=== PATIENT | male | born 2000 | race African-American/Black ===

== ENCOUNTER 2023-08-27 21:13 | Inpatient (IN) | payer MEDICAID ==
[2023-08-27] MEDS ORDERED: LORazepam 2 MG/ML VIAL ONE (21:47)
[2023-08-27] MEDS ORDERED: HALOPERIDOL LACTATE 5 MG/ML VIAL ONE (21:47)
[2023-08-27] MEDS ORDERED: DiphenhydrAMINE HCL 50 MG/ML VIAL ONE (21:47)
[2023-08-27 23:06] LABS: GLUCOMETER DEV NAME(LOC) POC.BV; POC SARS-COV2 AG, FIA NEGATIVE (NEGATIVE)
[2023-08-28] MEDS: LORazepam 2 MG/ML VIAL IM ONE (00:16)
[2023-08-28] MEDS: DiphenhydrAMINE HCL 50 MG/ML VIAL IM ONE (00:17)
[2023-08-28] MEDS: HALOPERIDOL LACTATE 5 MG/ML VIAL IM ONE (00:17)
[2023-08-28 02:11] VITALS: BP 126/78; PULSE 106; RESP 18; TEMP 98.5; O2SAT 97
[2023-08-28] MEDS ORDERED: MAG HYDROX/ALUMINUM HYD/SIMETH ES 30 ML SUSPENSION UDCUP PO PRN (05:30)
[2023-08-28] MEDS ORDERED: OMEPRAZOLE 20 MG CAPSULE PO PRN (05:30)
[2023-08-28] MEDS ORDERED: ALBUTEROL SULFATE HFA 90 MCG/PUFF 8 GM INHALER IH PRN (05:30)
[2023-08-28] MEDS ORDERED: ONDANSETRON HCL 4 MG TABLET PO PRN (05:30)
[2023-08-28] MEDS ORDERED: BACITRACIN 28 GM OINTMENT TP PRN (05:30)
[2023-08-28] MEDS ORDERED: PETROLATUM,WHITE 28 GM JELLY TP PRN (05:30)
[2023-08-28] MEDS ORDERED: ACETAMINOPHEN 325 MG TABLET PO PRN (05:30)
[2023-08-28] MEDS ORDERED: CloNIDine HCL 0.1 MG TABLET PO PRN (05:30)
[2023-08-28] MEDS ORDERED: BENZOCAINE/MENTHOL LOZENGE PO PRN (05:30)
[2023-08-28] MEDS ORDERED: LOPERAMIDE HCL 2 MG CAPSULE PO PRN (05:30)
[2023-08-28] MEDS ORDERED: MAGNESIUM HYDROXIDE SUSPENSION 30 ML UDCUP PO PRN (05:30)
[2023-08-28] MEDS ORDERED: DOCUSATE SODIUM 100 MG CAPSULE PO PRN (05:30)
[2023-08-28] MEDS: LORazepam 2 MG TABLET PO PRN (05:47)
[2023-08-28] MEDS: HALOPERIDOL 5 MG TABLET PO PRN (05:47)
[2023-08-28 08:53] LABS: BASOPHILS % (AUTO) 0.3 % (0.0-2.0); EOSINOPHILS % (AUTO) 4.2 % (1.0-6.0); HEMATOCRIT 40.6 % (41-53); HEMOGLOBIN 13.1 g/dL (13.5-17.5); LYMPHOCYTES # (AUTO) 2.6 K/uL (1.0-4.8); LYMPHOCYTES % (AUTO) 21.4 % (22.0-44.0); MEAN CORPUSCULAR HEMOGLOBIN 28.6 pg (26.0-34.0); MEAN CORPUSCULAR HGB CONC 32.2 G/dL (31.0-37.0); MEAN CORPUSCULAR VOLUME 89 fL (80-100); MONOCYTES # (AUTO) 0.8 K/uL (0.1-1.0); MONOCYTES % (AUTO) 6.9 % (2.0-9.0); NEUTROPHILS % (AUTO) 67.2 % (40.0-70.0); PLATELET COUNT (AUTO) 296 K/uL (150-450); RED BLOOD CELL COUNT(AUTO) 4.58 MIL/uL (4.50-5.90); RED CELL DISTRIBUTION WIDTH 13.8 % (11.5-14.5); WHITE BLOOD COUNT (AUTO) 11.9 K/uL (4.5-11.0)
[2023-08-28 09:10] LABS: ALANINE AMINOTRANSFERASE 28 U/L (12-78); ALKALINE PHOSPHATASE 56 U/L (46-116); ANION GAP 10 mmol/L (8-16); ASPARTATE AMINOTRANSFERASE 31 U/L (15-37); BILIRUBIN,TOTAL 0.4 mg/dL (0.1-1.0); CARBON DIOXIDE 26 mmol/L (22-29); CHLORIDE 100 mmol/L (98-107); CHOL/HDL RATIO 2.5 (4.2-7.3); CHOLESTEROL 109 mg/dL (131-200); GLOMERULAR FILTR. RATE CALC > 60 mL/min (>60); GLUCOSE,RANDOM 98 mg/dL (70-110); HDL CHOLESTEROL 43 mg/dL (40-60); LDL CHOL (CALC.) 52 mg/dL (0-130); POTASSIUM 4.1 mmol/L (3.5-5.1); SODIUM SERUM 136 mmol/L (136-145); THYROID STIMULATING HORMONE 1.79 uIU/mL (0.36-3.74); TOTAL PROTEIN, SERUM 7.5 g/dL (6.4-8.2); TRIGLYCERIDES 69 mg/dL (15-150); UREA NITROGEN, BLOOD 10 mg/dL (7-18)
[2023-08-28 09:12] VITALS: BP 122/65; PULSE 86; RESP 18; TEMP 97.9; O2SAT 100
[2023-08-28] MEDS: TERBINAFINE HCL 1% 30 GM CREAM TP SCH (17:22)
[2023-08-28] MEDS: BACITRACIN 28 GM OINTMENT TP SCH (17:28)
[2023-08-28 21:36] VITALS: RESP 18
[2023-08-29] MEDS: ZOLPIDEM TARTRATE 10 MG TABLET PO PRN (00:31)
[2023-08-29 08:52] VITALS: RESP 18
[2023-08-29] MEDS: MAGNESIUM SULFATE 454 GM BAG TP SCH (09:18)
[2023-08-29] MEDS: SULFAMETHOX/TRIMETH DS 800-160 MG/TABLET PO SCH (09:33)
[2023-08-30 08:22] VITALS: BP 123/68; PULSE 88; RESP 18; TEMP 98.3; O2SAT 100
[2023-08-30] MEDS: RisperiDONE 3 MG TABLET PO SCH (08:23)
[2023-08-30] MEDS: MULTIVITAMINS WITH MINERALS, THERAPEUTIC TABLET PO SCH (08:23)
[2023-08-30] MEDS ORDERED: HALOPERIDOL LACTATE 5 MG/ML VIAL ONE (10:58)
[2023-08-30] MEDS ORDERED: DiphenhydrAMINE HCL 50 MG/ML VIAL ONE (10:59)
[2023-08-30] MEDS: HALOPERIDOL LACTATE 5 MG/ML VIAL IM ONE (11:16)
[2023-08-30] MEDS: DiphenhydrAMINE HCL 50 MG/ML VIAL IM ONE (11:16)
[2023-08-30] MEDS: LORazepam 2 MG/ML VIAL IM ONE (11:16)
[2023-08-30 11:45] VITALS: BP 100/62; PULSE 68; RESP 16; TEMP 98.8; O2SAT 100
[2023-08-30 20:12] VITALS: BP 104/60; PULSE 88; RESP 18; TEMP 104; O2SAT 100
[2023-08-31 09:49] VITALS: BP 128/84; PULSE 96; RESP 19; O2SAT 99
[2023-08-31] MEDS: LORazepam 2 MG/ML VIAL IM ONE (11:56)
[2023-08-31] MEDS: DiphenhydrAMINE HCL 50 MG/ML VIAL IM ONE (11:56)
[2023-08-31] MEDS: HALOPERIDOL LACTATE 5 MG/ML VIAL IM ONE (11:56)
[2023-08-31 12:38] VITALS: BP 110/58; PULSE 98; RESP 17; TEMP 98.8; O2SAT 99
[2023-08-31 20:25] VITALS: BP 140/93; PULSE 125; RESP 18; TEMP 98.6; O2SAT 97
[2023-09-01 08:24] VITALS: BP 116/72; PULSE 100; RESP 17; TEMP 98.1; O2SAT 98
[2023-09-01 22:12] VITALS: RESP 17; TEMP 98.5
[2023-09-02 08:00] VITALS: BP 133/69; PULSE 115; RESP 18; TEMP 97.7
[2023-09-02 20:38] VITALS: RESP 18
[2023-09-03 08:23] VITALS: BP 114/65; PULSE 93; RESP 17; TEMP 97.6; O2SAT 97
[2023-09-03 21:20] VITALS: BP 118/63; PULSE 76; RESP 18; TEMP 97.7; O2SAT 98
[2023-09-04 08:33] VITALS: BP 119/60; PULSE 93; RESP 17; TEMP 97.6; O2SAT 95
[2023-09-04 20:33] VITALS: BP 103/65; PULSE 80; TEMP 97.9; O2SAT 99
[2023-09-05 09:29] VITALS: BP 128/64; PULSE 97; RESP 18; TEMP 97.1; O2SAT 99
[2023-09-05 20:30] VITALS: BP 114/86; PULSE 120; RESP 16; TEMP 98.4; O2SAT 99
[2023-09-06 08:06] VITALS: BP 120/86; PULSE 98; RESP 17; TEMP 98.2; O2SAT 98
[2023-09-06 21:16] VITALS: RESP 18
[2023-09-07 20:41] VITALS: RESP 18
[2023-09-08 08:40] VITALS: BP 100/62; PULSE 66; RESP 17; TEMP 97.6; O2SAT 100
[2023-09-08 20:49] VITALS: BP 104/52; PULSE 76; RESP 16; TEMP 98.2; O2SAT 97
[2023-09-09 08:11] VITALS: BP 124/73; PULSE 78; RESP 17; TEMP 97.7; O2SAT 100
[2023-09-09 20:30] VITALS: BP 121/80; PULSE 94; TEMP 97.7; O2SAT 99
[2023-09-10 08:26] VITALS: BP 119/71; PULSE 83; RESP 17; TEMP 98; O2SAT 97
[2023-09-11 00:38] VITALS: BP 123/68; PULSE 98; RESP 18; TEMP 97.6; O2SAT 99
[2023-09-11 08:46] VITALS: BP 127/60; PULSE 87; RESP 17; TEMP 98; O2SAT 99
[2023-09-11 20:14] VITALS: BP 120/83; PULSE 97; RESP 17; TEMP 98.4; O2SAT 100
[2023-09-12 08:28] VITALS: BP 104/75; PULSE 86; RESP 17; TEMP 97.4; O2SAT 99
[2023-09-12 20:51] VITALS: BP 126/61; PULSE 86; RESP 18; TEMP 98.2; O2SAT 100
[2023-09-13 08:28] VITALS: BP 140/80; PULSE 80; RESP 18; TEMP 97.9; O2SAT 100
[2023-09-13 23:53] VITALS: BP 120/76; PULSE 98; RESP 18; TEMP 97.9; O2SAT 98
[2023-09-14 08:41] VITALS: BP 124/77; PULSE 80; RESP 16; TEMP 98; O2SAT 98
[2023-09-14 20:19] VITALS: BP 116/64; PULSE 86; TEMP 98; O2SAT 98
[2023-09-15 08:34] VITALS: BP 127/75; PULSE 94; RESP 18; TEMP 98.2; O2SAT 100
[2023-09-15 20:58] VITALS: BP 133/78; PULSE 78; TEMP 98.2; O2SAT 98
[2023-09-16 08:05] VITALS: BP 122/86; PULSE 84; RESP 17; TEMP 98.4; O2SAT 100
[2023-09-16 20:28] VITALS: BP 127/76; PULSE 69; RESP 16; TEMP 97.6; O2SAT 100
[2023-09-17 08:30] VITALS: BP 119/66; PULSE 90; RESP 17; TEMP 98; O2SAT 100
[2023-09-17 09:10] LABS: APPEARANCE,URINE CLEAR (CLEAR); BILIRUBIN,URINE NEGATIVE (NEGATIVE); COLOR,URINE COLORLESS (YELLOW); GLUCOSE, URINE (UA) NEGATIVE (NEGATIVE); KETONES,URINE NEGATIVE (NEGATIVE); LEUKOCYTE ESTERASE ,URINE NEGATIVE (NEGATIVE); NITRATE,URINE NEGATIVE (NEGATIVE); OCCULT BLOOD,URINE NEGATIVE (NEGATIVE); PH,URINE 6.5 (5.0-8.0); PROTEIN,URINE NEGATIVE (NEGATIVE); SPECIFIC GRAVITIY, URINE 1.002 (1.003-1.030); UROBILINOGEN,URINE <=1.0 mg/dL (<=1.0)
[2023-09-17 21:06] VITALS: BP 115/64; PULSE 94; RESP 16; TEMP 98.3; O2SAT 96
[2023-09-18 09:53] VITALS: BP 135/62; PULSE 98; RESP 20; TEMP 96.8; O2SAT 98
[2023-09-18 20:45] VITALS: BP 126/65; PULSE 72; RESP 16; TEMP 97.6; O2SAT 97
[2023-09-19 08:24] VITALS: BP 137/73; PULSE 84; RESP 18; TEMP 97.9; O2SAT 100
[2023-09-19 08:29] LABS: BASOPHILS % (AUTO) 0.7 % (0.0-2.0); EOSINOPHILS % (AUTO) 9.4 % (1.0-6.0); HEMATOCRIT 37.2 % (41-53); HEMOGLOBIN 12.4 g/dL (13.5-17.5); LYMPHOCYTES # (AUTO) 2.8 K/uL (1.0-4.8); LYMPHOCYTES % (AUTO) 30.9 % (22.0-44.0); MEAN CORPUSCULAR HEMOGLOBIN 29.7 pg (26.0-34.0); MEAN CORPUSCULAR HGB CONC 33.4 G/dL (31.0-37.0); MEAN CORPUSCULAR VOLUME 89 fL (80-100); MONOCYTES # (AUTO) 0.9 K/uL (0.1-1.0); MONOCYTES % (AUTO) 10.1 % (2.0-9.0); NEUTROPHILS # (AUTO) 4.4 K/uL (1.8-7.7); NEUTROPHILS % (AUTO) 48.9 % (40.0-70.0); PLATELET COUNT (AUTO) 271 K/uL (150-450); RED BLOOD CELL COUNT(AUTO) 4.19 MIL/uL (4.50-5.90); RED CELL DISTRIBUTION WIDTH 14.2 % (11.5-14.5); WHITE BLOOD COUNT (AUTO) 8.9 K/uL (4.5-11.0)
[2023-09-19] MEDS: CloZAPine 25 MG TABLET PO SCH (11:30)
[2023-09-19 20:18] VITALS: BP 125/75; PULSE 76; RESP 18; TEMP 97.6; O2SAT 99
[2023-09-20] MEDS: CloZAPine 25 MG TABLET PO SCH ×2 (08:23→20:21)
[2023-09-20 11:01] VITALS: BP 126/72; PULSE 93; RESP 17; TEMP 97.9; O2SAT 99
[2023-09-20 20:50] VITALS: BP 132/72; PULSE 86; RESP 18; TEMP 98; O2SAT 98
[2023-09-21] MEDS: CloZAPine 25 MG TABLET PO SCH ×2 (08:09→20:06)
[2023-09-21 09:13] VITALS: BP 136/84; PULSE 96; RESP 17; TEMP 97.7; O2SAT 100
[2023-09-21 21:02] VITALS: BP 146/94; PULSE 90; TEMP 98.4; O2SAT 99
[2023-09-22] MEDS: CloZAPine 25 MG TABLET PO SCH (08:14)
[2023-09-22 08:44] VITALS: BP 137/66; PULSE 110; RESP 18; TEMP 97.7; O2SAT 100
[2023-09-22 20:13] VITALS: BP 120/81; PULSE 87; TEMP 97.4; O2SAT 98
[2023-09-23 08:30] VITALS: BP 123/76; PULSE 122; RESP 18; TEMP 97.6; O2SAT 100
[2023-09-23 11:20] VITALS: BP 131/67; PULSE 123; RESP 18; O2SAT 100
[2023-09-23 20:15] VITALS: BP 111/83; PULSE 120; TEMP 97.7; O2SAT 98
[2023-09-23] MEDS: ATENOLOL 25 MG TABLET PO SCH (20:23)
[2023-09-24 08:17] VITALS: BP 106/63; PULSE 95; RESP 17; TEMP 98; O2SAT 99
[2023-09-24] MEDS: CloZAPine 25 MG TABLET PO SCH (09:18)
[2023-09-24 20:17] VITALS: BP 124/74; PULSE 66; TEMP 97.9; O2SAT 98
[2023-09-24] MEDS: CloZAPine 100 MG TABLET PO SCH (20:47)
[2023-09-25] MEDS: CloZAPine 25 MG TABLET PO SCH (08:20)
[2023-09-25 09:02] VITALS: BP 130/70; PULSE 98; RESP 17; TEMP 98.2; O2SAT 100
[2023-09-25] MEDS: CloZAPine 100 MG TABLET PO SCH (20:39)
[2023-09-25 22:06] VITALS: BP 120/60; PULSE 91; RESP 18; TEMP 98.1; O2SAT 99
[2023-09-26] MEDS: CloZAPine 25 MG TABLET PO SCH (08:14)
[2023-09-26 08:22] VITALS: BP 123/69; PULSE 103; RESP 18; TEMP 97.8; O2SAT 100
[2023-09-26 08:28] LABS: BASOPHILS % (AUTO) 0.4 % (0.0-2.0); EOSINOPHILS % (AUTO) 10.6 % (1.0-6.0); HEMOGLOBIN 13.6 g/dL (13.5-17.5); LYMPHOCYTES # (AUTO) 2.5 K/uL (1.0-4.8); LYMPHOCYTES % (AUTO) 31.6 % (22.0-44.0); MEAN CORPUSCULAR HEMOGLOBIN 29.7 pg (26.0-34.0); MEAN CORPUSCULAR HGB CONC 33.2 G/dL (31.0-37.0); MEAN CORPUSCULAR VOLUME 89 fL (80-100); MONOCYTES # (AUTO) 0.7 K/uL (0.1-1.0); MONOCYTES % (AUTO) 8.8 % (2.0-9.0); NEUTROPHILS # (AUTO) 3.9 K/uL (1.8-7.7); NEUTROPHILS % (AUTO) 48.6 % (40.0-70.0); PLATELET COUNT (AUTO) 255 K/uL (150-450); RED BLOOD CELL COUNT(AUTO) 4.59 MIL/uL (4.50-5.90); RED CELL DISTRIBUTION WIDTH 14.8 % (11.5-14.5)
[2023-09-26 20:14] VITALS: BP 129/80; PULSE 81; RESP 18; TEMP 97.7
[2023-09-26] MEDS: CloZAPine 100 MG TABLET PO SCH (21:12)
[2023-09-27 08:03] VITALS: BP 129/64; PULSE 75; RESP 16; TEMP 98; O2SAT 100
[2023-09-27] MEDS: CloZAPine 100 MG TABLET PO SCH (08:04)
[2023-09-27 21:41] VITALS: BP 142/84; PULSE 84; RESP 16; TEMP 98.6; O2SAT 100
[2023-09-28 08:52] VITALS: BP 109/70; PULSE 100; RESP 18; TEMP 98.1; O2SAT 100
[2023-09-28 21:01] VITALS: BP 126/63; PULSE 103; TEMP 98.7; O2SAT 99
[2023-09-29] MEDS: INFLUENZA VIRUS VACCINE QVS 2023-24 (6MO+)/PF 60 MCG/0.5 ML SYRINGE IM. ONE (06:00)
[2023-09-29] MEDS: CloZAPine 25 MG TABLET PO SCH (08:11)
[2023-09-29 08:30] VITALS: BP 112/66; PULSE 93; RESP 17; TEMP 97.9; O2SAT 99
[2023-09-29] MEDS: CloZAPine 100 MG TABLET PO SCH (20:11)
[2023-09-29 20:14] VITALS: BP 139/80; PULSE 81; RESP 16; TEMP 98.4; O2SAT 98
[2023-09-30] MEDS: CloZAPine 25 MG TABLET PO SCH (08:22)
[2023-09-30 09:48] VITALS: BP 142/89; PULSE 100; RESP 18; TEMP 98.6; O2SAT 100
[2023-09-30] MEDS: CloZAPine 100 MG TABLET PO SCH (20:13)
[2023-09-30 20:27] VITALS: BP 111/78; PULSE 146; RESP 16; TEMP 98.2; O2SAT 97
[2023-10-01] MEDS: CloZAPine 100 MG TABLET PO SCH ×2 (09:07→20:54)
[2023-10-01 15:59] VITALS: BP 135/82; PULSE 88; RESP 18; TEMP 98.4; O2SAT 98
[2023-10-01 20:29] VITALS: BP 135/80; PULSE 88; RESP 18; TEMP 98.3; O2SAT 100
[2023-10-02 08:10] VITALS: BP 132/77; PULSE 100; RESP 18; TEMP 97.8; O2SAT 98
[2023-10-02 09:56] VITALS: BP 134/86; PULSE 96; RESP 18; TEMP 98.4; O2SAT 99
[2023-10-02 21:48] VITALS: BP 127/80; PULSE 99; RESP 18; TEMP 98.6; O2SAT 100
[2023-10-03 08:00] VITALS: BP 118/70; PULSE 104; RESP 18; TEMP 98.2; O2SAT 100
[2023-10-03 09:51] LABS: BASOPHILS % (AUTO) 0.9 % (0.0-2.0); EOSINOPHILS % (AUTO) 9.7 % (1.0-6.0); HEMATOCRIT 38.7 % (41-53); HEMOGLOBIN 12.8 g/dL (13.5-17.5); LYMPHOCYTES # (AUTO) 2.4 K/uL (1.0-4.8); LYMPHOCYTES % (AUTO) 29.4 % (22.0-44.0); MEAN CORPUSCULAR HEMOGLOBIN 29.4 pg (26.0-34.0); MEAN CORPUSCULAR HGB CONC 33.2 G/dL (31.0-37.0); MEAN CORPUSCULAR VOLUME 89 fL (80-100); MONOCYTES # (AUTO) 0.7 K/uL (0.1-1.0); NEUTROPHILS # (AUTO) 4.2 K/uL (1.8-7.7); PLATELET COUNT (AUTO) 252 K/uL (150-450); RED BLOOD CELL COUNT(AUTO) 4.37 MIL/uL (4.50-5.90); RED CELL DISTRIBUTION WIDTH 14.5 % (11.5-14.5); WHITE BLOOD COUNT (AUTO) 8.2 K/uL (4.5-11.0)
[2023-10-03 20:12] VITALS: BP 129/86; PULSE 88; RESP 18; TEMP 97.9
[2023-10-04 08:06] VITALS: BP 116/82; PULSE 85; RESP 16; TEMP 98; O2SAT 98
[2023-10-04 20:19] VITALS: BP 137/91; PULSE 92; RESP 18; TEMP 97.6; O2SAT 99
[2023-10-05 08:25] VITALS: BP 131/90; PULSE 100; RESP 18; TEMP 98; O2SAT 99
[2023-10-05 20:33] VITALS: BP 126/82; PULSE 92; RESP 18; TEMP 98; O2SAT 99
[2023-10-06 08:41] VITALS: BP 107/65; PULSE 106; RESP 17; TEMP 97.8; O2SAT 96
[2023-10-06 20:13] VITALS: BP 125/72; PULSE 98; RESP 18; TEMP 98; O2SAT 97
[2023-10-07 08:20] VITALS: BP 132/89; PULSE 100; RESP 17; TEMP 97.7; O2SAT 99
[2023-10-07 20:55] VITALS: BP 122/77; PULSE 76; TEMP 98.2; O2SAT 98
[2023-10-08 08:29] VITALS: BP 127/65; PULSE 94; RESP 18; TEMP 98.7; O2SAT 98
[2023-10-08 20:37] VITALS: BP 138/74; PULSE 92; TEMP 97.9; O2SAT 97
[2023-10-09 08:11] VITALS: BP 109/60; PULSE 100; RESP 17; TEMP 97.8; O2SAT 100
[2023-10-09 20:18] VITALS: BP 149/83; PULSE 104; RESP 18; TEMP 96.7; O2SAT 99
[2023-10-10 08:17] VITALS: BP 127/72; PULSE 110; RESP 18; TEMP 97.9; O2SAT 97
[2023-10-10 08:22] LABS: EOSINOPHILS % (AUTO) 11.3 % (1.0-6.0); HEMATOCRIT 40.6 % (41-53); HEMOGLOBIN 13.5 g/dL (13.5-17.5); LYMPHOCYTES # (AUTO) 3.2 K/uL (1.0-4.8); LYMPHOCYTES % (AUTO) 35.4 % (22.0-44.0); MEAN CORPUSCULAR HEMOGLOBIN 29.7 pg (26.0-34.0); MEAN CORPUSCULAR HGB CONC 33.3 G/dL (31.0-37.0); MEAN CORPUSCULAR VOLUME 89 fL (80-100); MONOCYTES # (AUTO) 0.8 K/uL (0.1-1.0); MONOCYTES % (AUTO) 8.4 % (2.0-9.0); NEUTROPHILS % (AUTO) 43.9 % (40.0-70.0); PLATELET COUNT (AUTO) 297 K/uL (150-450); RED BLOOD CELL COUNT(AUTO) 4.55 MIL/uL (4.50-5.90); RED CELL DISTRIBUTION WIDTH 14.6 % (11.5-14.5); WHITE BLOOD COUNT (AUTO) 9.1 K/uL (4.5-11.0)
[2023-10-11 04:00] VITALS: BP 113/78; PULSE 77; RESP 20; TEMP 97
[2023-10-11 09:23] VITALS: BP 130/60; PULSE 100; RESP 17; TEMP 97.9; O2SAT 100
[2023-10-11] MEDS: IBUPROFEN 600 MG TABLET PO PRN (18:58)
[2023-10-11 20:08] VITALS: RESP 18
[2023-10-12 08:24] VITALS: BP 140/60; PULSE 90; RESP 17; TEMP 98.5; O2SAT 100
[2023-10-12 20:41] VITALS: BP 128/69; PULSE 96; RESP 18; TEMP 98.2; O2SAT 98
[2023-10-13 08:35] VITALS: BP 129/85; PULSE 113; RESP 18; TEMP 97.9; O2SAT 99
[2023-10-13 08:45] VITALS: PULSE 100
[2023-10-13 21:09] VITALS: BP 140/87; PULSE 72; RESP 16; TEMP 98.4; O2SAT 98
[2023-10-14 08:29] VITALS: BP 132/70; PULSE 100; RESP 18; TEMP 97.7; O2SAT 98
[2023-10-14 21:37] VITALS: BP 126/72; PULSE 97; RESP 16; TEMP 97.7
[2023-10-15 09:23] VITALS: BP 123/71; PULSE 117; RESP 18; TEMP 98.6; O2SAT 96
[2023-10-15 20:13] VITALS: BP 132/66; PULSE 111; TEMP 98.4; O2SAT 98
[2023-10-16 08:20] VITALS: BP 112/71; PULSE 103; RESP 18; TEMP 98.7; O2SAT 98
[2023-10-16 20:16] VITALS: BP 114/85; PULSE 105; TEMP 98.2; O2SAT 96
[2023-10-17 08:12] LABS: BASOPHILS % (AUTO) 0.6 % (0.0-2.0); EOSINOPHILS % (AUTO) 9.8 % (1.0-6.0); HEMATOCRIT 40.5 % (41-53); HEMOGLOBIN 13.5 g/dL (13.5-17.5); LYMPHOCYTES # (AUTO) 2.8 K/uL (1.0-4.8); LYMPHOCYTES % (AUTO) 24.9 % (22.0-44.0); MEAN CORPUSCULAR HEMOGLOBIN 29.4 pg (26.0-34.0); MEAN CORPUSCULAR HGB CONC 33.3 G/dL (31.0-37.0); MEAN CORPUSCULAR VOLUME 88 fL (80-100); MONOCYTES # (AUTO) 0.8 K/uL (0.1-1.0); MONOCYTES % (AUTO) 7.5 % (2.0-9.0); NEUTROPHILS # (AUTO) 6.4 K/uL (1.8-7.7); NEUTROPHILS % (AUTO) 57.2 % (40.0-70.0); PLATELET COUNT (AUTO) 270 K/uL (150-450); RED BLOOD CELL COUNT(AUTO) 4.58 MIL/uL (4.50-5.90); RED CELL DISTRIBUTION WIDTH 14.6 % (11.5-14.5); WHITE BLOOD COUNT (AUTO) 11.3 K/uL (4.5-11.0)
[2023-10-17 08:15] VITALS: BP 125/62; PULSE 100; RESP 18; TEMP 97.3; O2SAT 96
[2023-10-17 20:16] VITALS: BP 177/83; PULSE 100; RESP 17; TEMP 98.6; O2SAT 99
[2023-10-18 08:11] VITALS: BP 141/84; PULSE 100; RESP 17; TEMP 98.5; O2SAT 99
[2023-10-18 20:27] VITALS: BP 125/81; PULSE 95; RESP 17; TEMP 98.2; O2SAT 97
[2023-10-19 08:49] VITALS: BP 137/72; PULSE 94; RESP 18; TEMP 97; O2SAT 97
[2023-10-19 20:22] VITALS: BP 126/77; PULSE 71; RESP 18; TEMP 98; O2SAT 96
[2023-10-20 08:47] VITALS: BP 140/86; PULSE 95; RESP 18; TEMP 97.8; O2SAT 98
[2023-10-20 20:23] VITALS: BP 113/75; PULSE 83; TEMP 98.4; O2SAT 97
[2023-10-21 08:26] VITALS: BP 124/73; PULSE 100; RESP 17; TEMP 97.6; O2SAT 98
[2023-10-21 20:19] VITALS: BP 124/68; PULSE 101; TEMP 97.5; O2SAT 98
[2023-10-22 08:36] VITALS: BP 133/80; PULSE 109; RESP 18; TEMP 97.7; O2SAT 99
[2023-10-22 20:16] VITALS: BP 126/73; PULSE 70; TEMP 98.2; O2SAT 100
[2023-10-23 08:32] VITALS: BP 101/62; PULSE 100; RESP 17; TEMP 97.2; O2SAT 99
[2023-10-23 20:21] VITALS: BP 129/72; PULSE 99; TEMP 98.4; O2SAT 96
[2023-10-24 08:08] LABS: BASOPHILS % (AUTO) 0.5 % (0.0-2.0); EOSINOPHILS % (AUTO) 12.3 % (1.0-6.0); HEMATOCRIT 41.9 % (41-53); HEMOGLOBIN 13.8 g/dL (13.5-17.5); LYMPHOCYTES % (AUTO) 34.4 % (22.0-44.0); MEAN CORPUSCULAR HEMOGLOBIN 29.5 pg (26.0-34.0); MEAN CORPUSCULAR VOLUME 89 fL (80-100); MONOCYTES # (AUTO) 0.8 K/uL (0.1-1.0); MONOCYTES % (AUTO) 8.9 % (2.0-9.0); NEUTROPHILS # (AUTO) 3.8 K/uL (1.8-7.7); NEUTROPHILS % (AUTO) 43.9 % (40.0-70.0); PLATELET COUNT (AUTO) 266 K/uL (150-450); RED BLOOD CELL COUNT(AUTO) 4.69 MIL/uL (4.50-5.90); RED CELL DISTRIBUTION WIDTH 14.5 % (11.5-14.5); WHITE BLOOD COUNT (AUTO) 8.7 K/uL (4.5-11.0)
[2023-10-24 08:24] VITALS: BP 141/79; PULSE 99; RESP 18; TEMP 97.5; O2SAT 100
[2023-10-24 20:07] VITALS: BP 136/87; PULSE 88; RESP 20; TEMP 97.7; O2SAT 98
[2023-10-25 08:59] VITALS: BP 112/69; PULSE 107; RESP 19; TEMP 97.8; O2SAT 98
[2023-10-25] MEDS ORDERED: CLOZ100T61 PO (09:18)
[2023-10-25] MEDS ORDERED: CLOZ200T24 PO (09:18)
[2023-10-25] MEDS ORDERED: ATEN-187 PO (09:20)
[2023-10-25] MEDS ORDERED: MULT-248 PO (09:21)
[2023-10-25 20:51] VITALS: BP 116/75; PULSE 74; RESP 16; TEMP 97.9; O2SAT 94
[2023-10-26 08:14] VITALS: BP 104/64; PULSE 84; RESP 16; TEMP 97.4; O2SAT 97
[2023-10-26 08:27] LABS: BASOPHILS % (AUTO) 1.1 % (0.0-2.0); EOSINOPHILS % (AUTO) 12.7 % (1.0-6.0); HEMATOCRIT 43.3 % (41-53); HEMOGLOBIN 14.5 g/dL (13.5-17.5); LYMPHOCYTES # (AUTO) 2.7 K/uL (1.0-4.8); LYMPHOCYTES % (AUTO) 32.2 % (22.0-44.0); MEAN CORPUSCULAR HEMOGLOBIN 29.7 pg (26.0-34.0); MEAN CORPUSCULAR HGB CONC 33.6 G/dL (31.0-37.0); MEAN CORPUSCULAR VOLUME 89 fL (80-100); MONOCYTES # (AUTO) 0.7 K/uL (0.1-1.0); MONOCYTES % (AUTO) 8.8 % (2.0-9.0); NEUTROPHILS # (AUTO) 3.8 K/uL (1.8-7.7); NEUTROPHILS % (AUTO) 45.2 % (40.0-70.0); PLATELET COUNT (AUTO) 277 K/uL (150-450); RED BLOOD CELL COUNT(AUTO) 4.89 MIL/uL (4.50-5.90); RED CELL DISTRIBUTION WIDTH 14.5 % (11.5-14.5); WHITE BLOOD COUNT (AUTO) 8.4 K/uL (4.5-11.0)
[2023-10-26 20:13] VITALS: BP 109/64; PULSE 91; RESP 16; TEMP 97.8; O2SAT 97
[2023-10-27 08:30] VITALS: BP 108/50; PULSE 92; RESP 18; TEMP 98; O2SAT 98
[2023-10-27] MEDS ORDERED: RISP3TAB77 PO (09:30)
== END 2023-10-27 14:39 | disposition home or self-care (01) | DRG 750 ==
LOC: B3A 22:14 → B2S 10-24 21:26
PROVIDERS: ADMIT Psychiatry & Neurology Psychiatry; ATTEND Psychiatry & Neurology Psychiatry
DX: F20.9 Schizophrenia, unspecified (principal); S91.301A Unspecified open wound, right foot, initial encounter; R45.851 Suicidal ideations; F32.A Depression, unspecified; Z20.822 Contact with and (suspected) exposure to COVID-19; F41.9 Anxiety disorder, unspecified; F94.0 Selective mutism; G47.00 Insomnia, unspecified; K21.9 Gastro-esophageal reflux disease without esophagitis; K59.00 Constipation, unspecified; S91.302A Unspecified open wound, left foot, initial encounter; X58.XXXA Exposure to other specified factors, initial encounter; Y93.9 Activity, unspecified; Y92.89 Other specified places as the place of occurrence of the external cause; Y99.8 Other external cause status
CPT/HCPCS: 80053; 80061; 81003; 83036; 84439; 84443; 85025; 86592; 87081; J1200; J1630; J2060

== ENCOUNTER 2023-11-13 10:25 | Inpatient (IN) | payer MEDICAID, OTHER ==
[~2023-11-13] VITALS: Ht 182.9 cm; Wt 86.2 kg
[~2023-11-13 10:25] MED LIST: ATEN-187 PO; MULT-248 PO; RISP3TAB77 PO
[2023-11-13 11:57] LABS: BASOPHILS % (AUTO) 0.9 % (0.0-2.0); EOSINOPHILS % (AUTO) 5.7 % (1.0-6.0); HEMATOCRIT 40.1 % (41-53); HEMOGLOBIN 13.5 g/dL (13.5-17.5); LYMPHOCYTES # (AUTO) 2.7 K/uL (1.0-4.8); LYMPHOCYTES % (AUTO) 29.3 % (22.0-44.0); MEAN CORPUSCULAR HEMOGLOBIN 29.7 pg (26.0-34.0); MEAN CORPUSCULAR HGB CONC 33.7 G/dL (31.0-37.0); MEAN CORPUSCULAR VOLUME 88 fL (80-100); MONOCYTES # (AUTO) 0.7 K/uL (0.1-1.0); MONOCYTES % (AUTO) 7.8 % (2.0-9.0); NEUTROPHILS # (AUTO) 5.2 K/uL (1.8-7.7); NEUTROPHILS % (AUTO) 56.3 % (40.0-70.0); PLATELET COUNT (AUTO) 209 K/uL (150-450); RED BLOOD CELL COUNT(AUTO) 4.55 MIL/uL (4.50-5.90); RED CELL DISTRIBUTION WIDTH 13.7 % (11.5-14.5); WHITE BLOOD COUNT (AUTO) 9.3 K/uL (4.5-11.0)
[2023-11-13 12:06] LABS: ANION GAP 11 mmol/L (8-16); CARBON DIOXIDE 23 mmol/L (22-29); CHLORIDE 105 mmol/L (98-107); CREATININE 0.83 mg/dL (0.60-1.30); GLOMERULAR FILTR. RATE CALC > 60 mL/min (>60); GLUCOSE,RANDOM 99 mg/dL (70-110); POTASSIUM 3.9 mmol/L (3.5-5.1); SODIUM SERUM 139 mmol/L (136-145); UREA NITROGEN, BLOOD 10 mg/dL (7-18)
[2023-11-13 12:10] LABS: ALCOHOL, BLOOD (SERUM) < 3 mg/dL (0-10)
[2023-11-13 12:12] LABS: ALANINE AMINOTRANSFERASE 30 U/L (12-78); ALBUMIN 3.9 g/dL (3.4-5.0); ALKALINE PHOSPHATASE 77 U/L (46-116); ASPARTATE AMINOTRANSFERASE 30 U/L (15-37); BILIRUBIN,TOTAL 0.5 mg/dL (0.1-1.0)
[2023-11-13 12:47] LABS: APPEARANCE,URINE CLEAR (CLEAR); BILIRUBIN,URINE NEGATIVE (NEGATIVE); COLOR,URINE LIGHT YELLOW (YELLOW); GLUCOSE, URINE (UA) NEGATIVE (NEGATIVE); KETONES,URINE NEGATIVE (NEGATIVE); LEUKOCYTE ESTERASE ,URINE NEGATIVE (NEGATIVE); NITRATE,URINE NEGATIVE (NEGATIVE); OCCULT BLOOD,URINE NEGATIVE (NEGATIVE); PH,URINE 7.5 (5.0-8.0); PH,URINE DRUG SCREEN 7.5 (5.0-8.0); PROTEIN,URINE NEGATIVE (NEGATIVE); SPECIFIC GRAVITIY, URINE 1.014 (1.003-1.030); UROBILINOGEN,URINE <=1.0 mg/dL (<=1.0)
[2023-11-13 12:52] LABS: AMPHET/METH SCREEN,URINE NEGATIVE (NEGATIVE); BARBITURATE SCREEN, URINE NEGATIVE (NEGATIVE); BENZODIAZEPINES SCREEN,URINE NEGATIVE (NEGATIVE); CANNABINOID SCREEN,URINE NEGATIVE (NEGATIVE); COCAINE SCREEN,URINE NEGATIVE (NEGATIVE); METHADONE SCREEN, URINE NEGATIVE (NEGATIVE); OPIATE SCREEN,URINE NEGATIVE (NEGATIVE); PHENCYCLIDINE SCREEN,URINE NEGATIVE (NEGATIVE)
[2023-11-13 12:54] LABS: ALCOHOL, URINE DRUG SCREEN NEGATIVE (NEGATIVE)
[2023-11-13 13:15] LABS: BACTERIA,URINE None Seen /HPF (None Seen); RBC,URINE None Seen /HPF (0-2); WBC,URINE 0-2 /HPF (0-5)
[2023-11-13] MEDS: HALOPERIDOL LACTATE 5 MG/ML VIAL IM ONE (13:22)
[2023-11-13] MEDS: LORazepam 2 MG/ML VIAL IM ONE (13:22)
[2023-11-13] MEDS: DiphenhydrAMINE HCL 50 MG/ML VIAL IM ONE (13:22)
[2023-11-13 17:49] LABS: COVID AG,FIA SOURCE NASAL SWAB
[2023-11-13] MEDS: LORazepam 2 MG TABLET PO ONE (17:54)
[2023-11-13 18:16] LABS: SARS-COV2 (COVID) ANTIGEN,FIA Negative (Negative)
[2023-11-13 20:59] VITALS: BP 133/75; PULSE 85; RESP 18; TEMP 97.5
[2023-11-13] MEDS ORDERED: PNEUMOCOCCAL VACCINE POLYVALENT 0.5 ML SYRINGE [PPSV23] IM. ONE (21:15)
[2023-11-14] MEDS: LORazepam 2 MG TABLET PO PRN (00:28)
[2023-11-14] MEDS: ZOLPIDEM TARTRATE 10 MG TABLET PO PRN (00:28)
[2023-11-14] MEDS ORDERED: DOCUSATE SODIUM 100 MG CAPSULE PO PRN (07:00)
[2023-11-14] MEDS ORDERED: LOPERAMIDE HCL 2 MG CAPSULE PO PRN (07:00)
[2023-11-14] MEDS ORDERED: NICOTINE 14 MG/24 HOUR PATCH TD PRN (07:00)
[2023-11-14] MEDS ORDERED: PETROLATUM,WHITE 28 GM JELLY TP PRN (07:00)
[2023-11-14] MEDS ORDERED: ALBUTEROL SULFATE HFA 90 MCG/PUFF 8 GM INHALER IH PRN (07:00)
[2023-11-14] MEDS ORDERED: GuaiFENesin/D-METHORPHAN [SUGAR-FREE] 200-20MG/10 ML SYRUP UDCUP PO PRN (07:00)
[2023-11-14] MEDS ORDERED: MAGNESIUM HYDROXIDE SUSPENSION 30 ML UDCUP PO PRN (07:00)
[2023-11-14] MEDS ORDERED: MAG HYDROX/ALUMINUM HYD/SIMETH ES 30 ML SUSPENSION UDCUP PO PRN (07:00)
[2023-11-14] MEDS ORDERED: ONDANSETRON HCL 4 MG TABLET PO PRN (07:00)
[2023-11-14] MEDS: HALOPERIDOL 5 MG TABLET PO PRN (07:32)
[2023-11-14 08:01] VITALS: BP 147/81; PULSE 98; RESP 18; TEMP 98.2; O2SAT 99
[2023-11-14] MEDS: MULTIVITAMINS, THERAPEUTIC TABLET PO SCH (08:01)
[2023-11-14] MEDS: ATENOLOL 25 MG TABLET PO SCH (08:01)
[2023-11-14 08:45] LABS: HEMOGLOBIN A1C 5.4 % (3.8-5.6)
[2023-11-14 09:06] LABS: CHOL/HDL RATIO 2.2 (4.2-7.3)
[2023-11-14] MEDS: RisperiDONE 3 MG TABLET PO SCH (10:24)
[2023-11-14 21:09] VITALS: BP 138/90; PULSE 90; RESP 18; TEMP 97.3; O2SAT 99
[2023-11-14 21:55] VITALS: BP 138/90; PULSE 90; RESP 18; TEMP 97.3
[2023-11-15 08:09] VITALS: BP 125/91; PULSE 100; RESP 16; TEMP 96; O2SAT 100
[2023-11-15 08:55] LABS: HEMOGLOBIN A1C 5.6 % (3.8-5.6)
[2023-11-15 08:58] LABS: CHOL/HDL RATIO 2.4 (4.2-7.3)
[2023-11-15 09:19] LABS: THYROID STIMULATING HORMONE 2.6 uIU/mL (0.36-3.74)
[2023-11-15 09:37] LABS: APPEARANCE,URINE CLEAR (CLEAR); BILIRUBIN,URINE NEGATIVE (NEGATIVE); COLOR,URINE COLORLESS (YELLOW); GLUCOSE, URINE (UA) NEGATIVE (NEGATIVE); KETONES,URINE NEGATIVE (NEGATIVE); LEUKOCYTE ESTERASE ,URINE NEGATIVE (NEGATIVE); NITRATE,URINE NEGATIVE (NEGATIVE); OCCULT BLOOD,URINE NEGATIVE (NEGATIVE); PH,URINE 6.5 (5.0-8.0); PH,URINE DRUG SCREEN 6.5 (5.0-8.0); PROTEIN,URINE NEGATIVE (NEGATIVE); SPECIFIC GRAVITIY, URINE 1.004 (1.003-1.030); UROBILINOGEN,URINE <=1.0 mg/dL (<=1.0)
[2023-11-15 09:43] LABS: ALCOHOL, URINE DRUG SCREEN NEGATIVE (NEGATIVE); AMPHET/METH SCREEN,URINE NEGATIVE (NEGATIVE); BARBITURATE SCREEN, URINE NEGATIVE (NEGATIVE); BENZODIAZEPINES SCREEN,URINE NEGATIVE (NEGATIVE); CANNABINOID SCREEN,URINE NEGATIVE (NEGATIVE); COCAINE SCREEN,URINE NEGATIVE (NEGATIVE); METHADONE SCREEN, URINE NEGATIVE (NEGATIVE); OPIATE SCREEN,URINE NEGATIVE (NEGATIVE); PHENCYCLIDINE SCREEN,URINE NEGATIVE (NEGATIVE)
[2023-11-15 21:46] VITALS: BP 138/96; PULSE 101; RESP 16; TEMP 98; O2SAT 98
[2023-11-16] MEDS ORDERED: HALOPERIDOL LACTATE 5 MG/ML VIAL ONE (02:37)
[2023-11-16] MEDS ORDERED: LORazepam 2 MG/ML VIAL ONE (02:37)
[2023-11-16] MEDS ORDERED: DiphenhydrAMINE HCL 50 MG/ML VIAL ONE (02:37)
[2023-11-16] MEDS: HALOPERIDOL LACTATE 5 MG/ML VIAL IM ONE (02:52)
[2023-11-16] MEDS: DiphenhydrAMINE HCL 50 MG/ML VIAL IM ONE (02:52)
[2023-11-16] MEDS: LORazepam 2 MG/ML VIAL IM ONE (02:52)
[2023-11-16 11:02] VITALS: BP 124/70; PULSE 91; RESP 18; TEMP 97.3; O2SAT 99
[2023-11-16 20:49] VITALS: BP 129/73; PULSE 98; RESP 18; TEMP 98.6
[2023-11-17 09:57] VITALS: BP 119/80; PULSE 99; RESP 20; TEMP 98; O2SAT 99
[2023-11-17 20:52] VITALS: BP 152/98; PULSE 86; RESP 18; TEMP 98.6; O2SAT 100
[2023-11-18 06:35] VITALS: RESP 18
[2023-11-18] MEDS: DiphenhydrAMINE HCL 50 MG/ML VIAL IM ONE (06:55)
[2023-11-18] MEDS: HALOPERIDOL LACTATE 5 MG/ML VIAL IM ONE (06:57)
[2023-11-18] MEDS: LORazepam 2 MG/ML VIAL IM ONE (06:57)
[2023-11-18 07:50] VITALS: RESP 16
[2023-11-18 09:17] VITALS: BP 128/79; PULSE 87; RESP 17; TEMP 97.6; O2SAT 98
[2023-11-18 20:51] VITALS: BP 112/70; PULSE 87; TEMP 97.6; O2SAT 97
[2023-11-19 08:11] VITALS: BP 146/86; PULSE 92; RESP 16; TEMP 98.3; O2SAT 100
[2023-11-19 20:20] VITALS: BP 120/68; PULSE 73; TEMP 97.6; O2SAT 100
[2023-11-20 08:11] VITALS: BP 117/72; PULSE 104; RESP 17; TEMP 97.6
[2023-11-20 20:24] VITALS: BP 100/62; PULSE 78; TEMP 98; O2SAT 99
[2023-11-21 08:32] VITALS: BP 121/72; PULSE 101; RESP 18; TEMP 98.4; O2SAT 97
[2023-11-21] MEDS: DIVALPROEX SODIUM 500 MG DR TABLET PO SCH (11:37)
[2023-11-21 20:22] VITALS: BP 132/81; PULSE 89; RESP 18; TEMP 98.2
[2023-11-22 08:03] VITALS: BP 125/72; PULSE 78; RESP 16; TEMP 98.4
[2023-11-22] MEDS ORDERED: LORazepam 2 MG/ML VIAL ONE (09:20)
[2023-11-22] MEDS ORDERED: DiphenhydrAMINE HCL 50 MG/ML VIAL ONE (09:21)
[2023-11-22] MEDS ORDERED: HALOPERIDOL LACTATE 5 MG/ML VIAL ONE (09:21)
[2023-11-22] MEDS: DiphenhydrAMINE HCL 50 MG/ML VIAL IM ONE (09:48)
[2023-11-22] MEDS: HALOPERIDOL LACTATE 5 MG/ML VIAL IM ONE (09:48)
[2023-11-22] MEDS: LORazepam 2 MG/ML VIAL IM ONE (09:48)
[2023-11-22 21:01] VITALS: BP 114/68; PULSE 85; RESP 18; TEMP 98.2
[2023-11-23 10:19] VITALS: BP 111/77; PULSE 101; RESP 17; TEMP 97.8; O2SAT 95
[2023-11-23 22:08] VITALS: BP 140/80; PULSE 100; RESP 16; TEMP 98.2; O2SAT 95
[2023-11-24 08:38] VITALS: BP 138/75; PULSE 111; RESP 18; TEMP 98.2; O2SAT 97
[2023-11-24] MEDS ORDERED: LORazepam 2 MG/ML VIAL ONE (11:19)
[2023-11-24] MEDS: DiphenhydrAMINE HCL 50 MG/ML VIAL IM ONE (11:51)
[2023-11-24] MEDS: LORazepam 2 MG/ML VIAL IM ONE (11:51)
[2023-11-24] MEDS: HALOPERIDOL LACTATE 5 MG/ML VIAL IM ONE (11:51)
[2023-11-24 20:12] VITALS: BP 105/52; PULSE 80; TEMP 97.8; O2SAT 97
[2023-11-25 08:11] VITALS: BP 110/85; PULSE 94; RESP 17; TEMP 98; O2SAT 100
[2023-11-25 20:23] VITALS: BP 104/60; PULSE 80; TEMP 98.2; O2SAT 100
[2023-11-26 08:33] VITALS: BP 100/72; PULSE 81; RESP 17; TEMP 98.7; O2SAT 98
[2023-11-26 19:00] VITALS: BP 113/68; PULSE 83; RESP 18; TEMP 97.5; O2SAT 98
[2023-11-26 21:45] VITALS: BP 108/62; PULSE 78; RESP 16; TEMP 97.8; O2SAT 96
[2023-11-27 08:24] VITALS: BP 108/72; PULSE 99; RESP 17; TEMP 98.4; O2SAT 97
[2023-11-27 18:04] VITALS: BP 140/78; PULSE 98; RESP 18; TEMP 98.4; O2SAT 90
[2023-11-27 21:00] VITALS: BP 140/78; PULSE 98; RESP 18; TEMP 98.4; O2SAT 90
[2023-11-28 08:52] VITALS: BP 126/82; PULSE 62; RESP 17; TEMP 97.5; O2SAT 95
[2023-11-28 21:48] VITALS: BP 122/68; PULSE 81; RESP 18; TEMP 96.9; O2SAT 96
[2023-11-29 08:38] VITALS: BP 106/67; PULSE 79; RESP 17; TEMP 98.2; O2SAT 96
[2023-11-29 20:17] VITALS: BP 136/89; PULSE 78; RESP 18; TEMP 98.4; O2SAT 100
[2023-11-30 09:20] VITALS: BP 98/60; PULSE 70; RESP 17; TEMP 98; O2SAT 96
[2023-11-30 20:17] VITALS: BP 122/68; PULSE 74; RESP 17; TEMP 98.4; O2SAT 97
[2023-12-01 09:13] VITALS: BP 114/65; PULSE 83; RESP 18; TEMP 97.7; O2SAT 97
[2023-12-01 20:17] VITALS: BP 105/60; PULSE 98; RESP 18; TEMP 98.2; O2SAT 97
[2023-12-02 09:53] VITALS: BP 107/71; PULSE 86; RESP 15; TEMP 98.2; O2SAT 96
[2023-12-02 20:45] VITALS: BP 143/73; PULSE 70; RESP 16; TEMP 98
[2023-12-02] MEDS: LORazepam 1 MG TABLET PO PRN (23:58)
[2023-12-02] MEDS: ZOLPIDEM TARTRATE 10 MG TABLET PO PRN (23:58)
[2023-12-03 08:34] VITALS: BP 114/61; PULSE 73; RESP 17; TEMP 98; O2SAT 96
[2023-12-03 20:30] VITALS: BP 128/70; PULSE 74; RESP 16; TEMP 97.8; O2SAT 99
[2023-12-03] MEDS: RisperiDONE ER SUSPENSION 125 MG/0.35 ML PRE-FILLED SYRINGE SQ SCH (21:14)
[2023-12-04 08:54] VITALS: BP 105/50; PULSE 76; RESP 18; TEMP 98; O2SAT 97
[2023-12-04 20:26] VITALS: BP 101/64; PULSE 60; TEMP 97.5; O2SAT 99
[2023-12-05 08:17] VITALS: BP 104/54; PULSE 65; RESP 17; TEMP 98.5; O2SAT 99
[2023-12-05 20:15] VITALS: BP 102/56; PULSE 63; RESP 18; TEMP 97.8; O2SAT 96
[2023-12-06 10:10] VITALS: BP 105/74; PULSE 94; RESP 16; TEMP 98; O2SAT 99
[2023-12-06 20:52] VITALS: BP 121/69; PULSE 88; RESP 18; TEMP 98.4; O2SAT 97
[2023-12-07 08:26] VITALS: BP 117/69; PULSE 79; RESP 17; TEMP 89.6; O2SAT 100
[2023-12-07 21:05] VITALS: BP 161/76; PULSE 92; RESP 17; TEMP 98.7; O2SAT 100
[2023-12-08 08:37] VITALS: BP 103/56; PULSE 64; RESP 17; TEMP 98; O2SAT 99
[2023-12-08 20:30] VITALS: BP 126/77; PULSE 87; RESP 16; TEMP 97.8; O2SAT 98
[2023-12-09 10:37] VITALS: BP 96/51; PULSE 64; RESP 17; TEMP 91.9; O2SAT 97
[2023-12-09 20:32] VITALS: BP 117/60; PULSE 72; RESP 18; TEMP 97.9
[2023-12-10 08:18] VITALS: BP 107/67; PULSE 83; RESP 16; TEMP 97.5; O2SAT 97
[2023-12-10 20:37] VITALS: BP 108/55; PULSE 68; TEMP 98.7; O2SAT 98
[2023-12-11 08:21] VITALS: BP 104/68; PULSE 80; RESP 17; TEMP 98.4; O2SAT 96
[2023-12-11 20:11] VITALS: BP 133/70; PULSE 80; RESP 16; TEMP 97.8; O2SAT 98
[2023-12-12 08:09] VITALS: BP 102/62; PULSE 60; RESP 17; TEMP 98.6; O2SAT 98
[2023-12-12 20:55] VITALS: BP 139/65; PULSE 70; RESP 16; TEMP 97.8; O2SAT 100
[2023-12-12 21:04] VITALS: BP 139/65; PULSE 70; RESP 16; TEMP 97.8; O2SAT 100
[2023-12-13 08:03] VITALS: BP 110/71; PULSE 78; RESP 16; TEMP 98; O2SAT 98
[2023-12-13 20:18] VITALS: BP 112/75; PULSE 76; RESP 17; TEMP 98.3; O2SAT 98
[2023-12-14 08:23] VITALS: BP 110/60; PULSE 64; RESP 17; TEMP 98.2; O2SAT 98
[2023-12-14 20:32] VITALS: BP 109/68; PULSE 97; TEMP 97.5; O2SAT 100
[2023-12-15 08:07] VITALS: BP 120/79; PULSE 75; RESP 18; TEMP 97.7; O2SAT 96
[2023-12-15 20:22] VITALS: BP 120/67; PULSE 60; RESP 16; TEMP 98.6; O2SAT 99
[2023-12-16 08:06] VITALS: BP 112/75; PULSE 87; RESP 15; TEMP 97.7; O2SAT 97
[2023-12-16 20:19] VITALS: BP 120/66; PULSE 77; TEMP 97.5; O2SAT 98
[2023-12-17 08:39] VITALS: BP 107/67; PULSE 60; RESP 16; TEMP 97.7; O2SAT 98
[2023-12-17 20:13] VITALS: BP 89/58; PULSE 61; TEMP 98.6; O2SAT 98
[2023-12-18 08:10] VITALS: BP 109/75; PULSE 82; RESP 18; TEMP 98.4; O2SAT 98
[2023-12-18] MEDS: ACETAMINOPHEN 325 MG TABLET PO PRN (18:59)
[2023-12-18 20:35] VITALS: BP 112/72; PULSE 65; TEMP 97.7; O2SAT 100
[2023-12-19 08:22] VITALS: BP 121/76; PULSE 64; RESP 20; TEMP 97.8; O2SAT 98
[2023-12-19 21:05] VITALS: BP 111/71; PULSE 72; RESP 16; TEMP 97.9
[2023-12-20 08:12] VITALS: BP 112/75; PULSE 73; RESP 17; TEMP 96.8; O2SAT 98
[2023-12-20 20:18] VITALS: BP 127/50; PULSE 70; RESP 16; TEMP 98.7; O2SAT 98
[2023-12-21 08:15] VITALS: BP 120/76; PULSE 96; RESP 18; TEMP 97.3; O2SAT 97
[2023-12-21 20:25] VITALS: BP 115/70; PULSE 86; RESP 16; TEMP 97.8; O2SAT 95
[2023-12-22 08:35] VITALS: BP 124/71; PULSE 79; RESP 18; TEMP 97.2; O2SAT 97
[2023-12-22 20:12] VITALS: BP 117/66; PULSE 73; RESP 16; TEMP 98; O2SAT 98
[2023-12-23 08:39] VITALS: BP 119/75; PULSE 95; RESP 18; TEMP 98; O2SAT 97
[2023-12-23 20:20] VITALS: BP 116/71; PULSE 89; TEMP 98.4; O2SAT 98
[2023-12-24 08:53] VITALS: BP 136/88; PULSE 99; RESP 18; TEMP 97.5; O2SAT 98
[2023-12-24 20:19] VITALS: BP 133/72; PULSE 98; TEMP 98; O2SAT 99
[2023-12-25 08:31] VITALS: BP 135/81; PULSE 95; RESP 15; TEMP 98.7; O2SAT 97
[2023-12-25 20:54] VITALS: BP 117/69; PULSE 80; RESP 16; TEMP 97.8; O2SAT 98
[2023-12-26 08:54] VITALS: BP 126/76; PULSE 81; RESP 18; TEMP 98; O2SAT 96
[2023-12-26 08:55] VITALS: BP 126/76; PULSE 81; RESP 18; TEMP 98; O2SAT 96
[2023-12-27 08:17] VITALS: BP 130/78; PULSE 81; RESP 17; TEMP 98.2; O2SAT 97
[2023-12-27 20:46] VITALS: BP 126/72; PULSE 78; RESP 17; TEMP 98; O2SAT 97
[2023-12-28 14:06] VITALS: BP 116/75; PULSE 97; RESP 15; TEMP 98.4; O2SAT 98
[2023-12-28 20:19] VITALS: BP 128/77; PULSE 89; TEMP 98.4; O2SAT 98
[2023-12-29 08:43] VITALS: BP 112/60; PULSE 69; RESP 17; TEMP 97.5; O2SAT 99
[2023-12-29] MEDS ORDERED: LORazepam 2 MG/ML VIAL ONE (17:29)
[2023-12-29] MEDS ORDERED: DiphenhydrAMINE HCL 50 MG/ML VIAL ONE (17:29)
[2023-12-29] MEDS: LORazepam 2 MG/ML VIAL IM ONE (17:35)
[2023-12-29] MEDS: DiphenhydrAMINE HCL 50 MG/ML VIAL IM ONE (17:35)
[2023-12-29] MEDS: HALOPERIDOL LACTATE 5 MG/ML VIAL IM ONE (17:35)
[2023-12-29 21:59] VITALS: BP 117/87; PULSE 97; RESP 18; TEMP 98.4; O2SAT 96
[2023-12-30 08:28] VITALS: BP 105/60; PULSE 82; RESP 17; TEMP 98; O2SAT 96
[2023-12-30 20:12] VITALS: BP 125/88; PULSE 98; RESP 18; TEMP 98; O2SAT 99
[2023-12-31 13:08] VITALS: BP 128/71; PULSE 88; RESP 16; TEMP 98.2; O2SAT 97
[2023-12-31 21:29] VITALS: BP 120/68; PULSE 92; RESP 16; TEMP 97.7
[2024-01-01 08:00] VITALS: BP 148/87; PULSE 95; RESP 16; TEMP 97.7; O2SAT 98
[2024-01-01 21:30] VITALS: BP 124/78; PULSE 124; RESP 16; TEMP 98.4; O2SAT 100
[2024-01-02 09:16] VITALS: BP 122/75; PULSE 81; RESP 16; TEMP 97.5; O2SAT 96
[2024-01-02 20:24] VITALS: BP 103/65; PULSE 92; RESP 16; TEMP 97.7; O2SAT 97
[2024-01-03 08:35] VITALS: BP 118/68; PULSE 73; RESP 18; TEMP 98.4; O2SAT 99
[2024-01-03 20:29] VITALS: BP 106/69; PULSE 68; RESP 17; TEMP 97.5; O2SAT 95
[2024-01-04 08:58] VITALS: BP 125/61; PULSE 106; RESP 18; TEMP 97.5; O2SAT 98
[2024-01-04 21:29] VITALS: BP 96/74; PULSE 66; TEMP 98.2; O2SAT 98
[2024-01-05 08:26] VITALS: BP 125/69; PULSE 86; RESP 18; TEMP 97.7; O2SAT 99
[2024-01-05 08:38] VITALS: BP 125/69; PULSE 86; RESP 18; TEMP 98.9; O2SAT 96
[2024-01-05 20:47] VITALS: BP 124/80; PULSE 95; TEMP 97.8; O2SAT 95
[2024-01-06 08:08] VITALS: BP 120/72; PULSE 79; RESP 18; TEMP 98.1; O2SAT 99
[2024-01-06 20:29] VITALS: BP 104/69; PULSE 76; TEMP 97.5; O2SAT 99
[2024-01-07 08:23] VITALS: RESP 18
[2024-01-07 20:54] VITALS: BP 110/52; PULSE 61; TEMP 98.4; O2SAT 98
[2024-01-08 08:34] VITALS: BP 123/68; PULSE 75; RESP 17; TEMP 97.7; O2SAT 95
[2024-01-08 20:50] VITALS: BP 122/71; PULSE 72; TEMP 98; O2SAT 98
[2024-01-09 08:26] VITALS: BP 124/68; PULSE 91; RESP 17; TEMP 98.3; O2SAT 97
[2024-01-09 20:31] VITALS: BP 130/103; PULSE 87; RESP 18; TEMP 97.8; O2SAT 98
[2024-01-10 09:36] VITALS: BP 107/67; PULSE 70; RESP 17; TEMP 97.3; O2SAT 98
[2024-01-10 21:32] VITALS: BP 123/74; PULSE 72; RESP 18; TEMP 97.5
[2024-01-11 09:42] VITALS: BP 109/63; PULSE 65; RESP 18; TEMP 98.3; O2SAT 99
[2024-01-11 20:23] VITALS: BP 101/62; PULSE 68; RESP 17; TEMP 97.7; O2SAT 97
[2024-01-12 08:32] VITALS: BP 131/71; PULSE 66; RESP 18; TEMP 97.9; O2SAT 100
[2024-01-12 20:46] VITALS: BP 115/69; PULSE 86; TEMP 97.5; O2SAT 98
[2024-01-13 08:25] VITALS: BP 110/81; PULSE 87; RESP 16; TEMP 97.9; O2SAT 97
[2024-01-13 20:33] VITALS: BP 116/60; PULSE 65; RESP 20; TEMP 96; O2SAT 96
[2024-01-14 08:53] VITALS: BP 116/62; PULSE 66; RESP 17; TEMP 97.5; O2SAT 97
[2024-01-14 20:40] VITALS: BP 101/47; PULSE 60; RESP 16; TEMP 97.7; O2SAT 96
[2024-01-15 08:17] VITALS: BP 106/64; PULSE 82; RESP 15; TEMP 97.8; O2SAT 98
[2024-01-15 21:16] VITALS: BP 110/55; PULSE 85; RESP 16; TEMP 97.5; O2SAT 97
[2024-01-16 09:37] VITALS: BP 104/75; PULSE 88; RESP 16; TEMP 97.7; O2SAT 97
[2024-01-16 23:58] VITALS: BP 108/69; PULSE 85; RESP 18; TEMP 97.9; O2SAT 98
[2024-01-17 10:21] VITALS: BP 111/73; RESP 18; TEMP 97.3; O2SAT 98
[2024-01-17 20:31] VITALS: BP 118/78; PULSE 86; RESP 18; TEMP 97.8
[2024-01-18 09:36] VITALS: BP 114/63; PULSE 92; RESP 16; TEMP 97.5; O2SAT 100
[2024-01-18] MEDS: BENZTROPINE MESYLATE 0.5 MG TABLET PO SCH (11:32)
[2024-01-18 22:11] VITALS: BP 101/66; PULSE 64; RESP 16; TEMP 97.3; O2SAT 100
[2024-01-18] MEDS: IBUPROFEN 400 MG TABLET PO PRN (23:38)
[2024-01-19 11:36] VITALS: RESP 16
[2024-01-19 20:52] VITALS: BP 108/63; PULSE 62; RESP 17; TEMP 97.2; O2SAT 100
[2024-01-20 08:55] VITALS: BP 131/78; PULSE 74; RESP 16; TEMP 97.3; O2SAT 99
[2024-01-21 01:11] VITALS: BP 106/61; PULSE 60; RESP 18; TEMP 97.7; O2SAT 96
[2024-01-21 08:10] LABS: HEMATOCRIT 41.7 % (41-53); HEMOGLOBIN 13.7 g/dL (13.5-17.5); MEAN CORPUSCULAR HEMOGLOBIN 29.2 pg (26.0-34.0); MEAN CORPUSCULAR HGB CONC 32.9 G/dL (31.0-37.0); MEAN CORPUSCULAR VOLUME 89 fL (80-100); PLATELET COUNT (AUTO) 200 K/uL (150-450); RED BLOOD CELL COUNT(AUTO) 4.69 MIL/uL (4.50-5.90); RED CELL DISTRIBUTION WIDTH 13.3 % (11.5-14.5)
[2024-01-21 08:22] LABS: ANION GAP 9 mmol/L (8-16); CALCIUM, TOTAL 8.4 mg/dL (8.8-10.5); CARBON DIOXIDE 28 mmol/L (22-29); CHLORIDE 102 mmol/L (98-107); GLOMERULAR FILTR. RATE CALC > 60 mL/min (>60); GLUCOSE,RANDOM 89 mg/dL (70-110); POTASSIUM 4.2 mmol/L (3.5-5.1); SODIUM SERUM 139 mmol/L (136-145); UREA NITROGEN, BLOOD 12 mg/dL (7-18)
[2024-01-21 09:00] VITALS: BP 114/67; PULSE 64; RESP 17; TEMP 97.3; O2SAT 98
[2024-01-21 09:28] LABS: BAND NEUTROPHILS % (MANUAL) 5 % (0-5); EOSINOPHILS % (MANUAL) 1 % (1-6); LYMPHOCYTES % (MANUAL) 36 % (22-44); MONOCYTES % (MANUAL) 7 % (2-9); SEGMENTED NEUTROPHILS % 51 % (40-70); TOTAL CELLS COUNTED 100
[2024-01-21 09:31] LABS: RBC MORPHOLOGY COMMENT NORMAL RBC MORPH
[2024-01-21] MEDS ORDERED: DIVA-112 PO (13:54)
[2024-01-21] MEDS ORDERED: RISP125S SQ (13:54)
[2024-01-21] MEDS ORDERED: BENZ0.5T52 PO (13:54)
== END 2024-01-21 15:30 | disposition home or self-care (01) | DRG 750 ==
LOC: EMS 10:25 → B3A 17:36
PROVIDERS: ADMIT Psychiatry & Neurology Psychiatry; ATTEND Psychiatry & Neurology Psychiatry
PROC: GZHZZZZ Group Psychotherapy (ICD-10-PCS; principal; 2023-11-14)
PROC: GZ52ZZZ Individual Psychotherapy, Cognitive (ICD-10-PCS; 2023-11-14)
DX: F20.0 Paranoid schizophrenia (principal); F41.9 Anxiety disorder, unspecified; Z20.822 Contact with and (suspected) exposure to COVID-19; G47.00 Insomnia, unspecified; I10 Essential (primary) hypertension; Z59.00 Homelessness unspecified; Z91.010 Allergy to peanuts; Z79.899 Other long term (current) drug therapy
CPT/HCPCS: 80048; 80053; 80061; 80164; 80307; 81001; 81003; 83036; 84443; 85025; 86592; 87081; 99285; G0480; J1200; J1630; J2060; Q9967